=== PATIENT | female | born 1980 | race Asian ===

== ENCOUNTER 2017-05-06 06:37 | Day surgery (SDC) | payer OTHER ==
[~2017-05-06 06:37] MED LIST: Buffered Lidocaine 0.9% SYRIN* 5 ML/SYR SYRINGE INTRADERM ONE; Dexamethasone IV* 4 MG/ML 1 ML (4 MG) IV SLOW PU ONE; Dexamethasone IV* 4 MG/ML 1 ML (4 MG) ONE; Famotidine IV* 10 MG/ML 2 ML (20 mg) IV ONE; Famotidine IV* 10 MG/ML 2 ML (20 mg) ONE
[2017-05-06] MEDS ORDERED: Bupivacaine 0.25% SDV* 30 ML ONE (07:02)
[2017-05-06] MEDS ORDERED: Midazolam* 1 MG/ML 2 ML VIAL (2 MG) ONE (07:13)
[2017-05-06] MEDS ORDERED: fentaNYL* 50 MCG/ML 2 ML VIAL (100 MCG VIAL) ONE (07:13)
[2017-05-06] MEDS ORDERED: fentaNYL* 50 MCG/ML 2 ML VIAL (100 MCG VIAL) IV PRN (07:34)
[2017-05-06] MEDS ORDERED: Ketorolac INJ* 30 MG/ML 1 ML VIAL IV PRN (07:34)
[2017-05-06] MEDS ORDERED: HYDROcodone/ACETAMIN 5-325 MG* 1 TAB PO PRN (07:34)
[2017-05-06] MEDS ORDERED: PROCHLORPERAZINE INJ 5 MG/ML 2 ML VIAL IV PRN (07:34)
[2017-05-06] MEDS ORDERED: Ondansetron INJ* 2 MG/ML VIAL ONE (07:50)
[2017-05-06 08:27] VITALS: BP 117/85
--- NOTE | 2017-05-07 02:18 | OP ---
DATE OF OPERATION: 05/06/17 - [facility] DATE OF : 78 SURGEON: Brian Araujo MD JAVA WEB ENGINEER: None. ANESTHESIOLOGIST: Dr. David Lucero. ANESTHESIA: Local MAC. PRE-OP DIAGNOSIS: Right carpal tunnel syndrome. POST-OP DIAGNOSIS: Right carpal tunnel syndrome. PROCEDURE PERFORMED: Right open carpal tunnel release. INDICATIONS: Ae Say is 36. She has had progressive right carpal tunnel syndrome. We talked about risks and benefits; she wanted to proceed with right carpal tunnel release. ESTIMATED BLOOD LOSS: 2 mL. COMPLICATIONS: None. FINDINGS: As expected. DESCRIPTION OF PROCEDURE: The patient was seen in the preoperative holding area. The correct site, side, and procedure were identified. We came back to the operating room where she had some anesthesia and then I infiltrated the operative area with 0.25% plain Marcaine. Arm was then prepped and draped in the usual fashion. A formal time out was performed. I began by making a longitudinal incision about 2 to 3 cm in the standard location for an open carpal tunnel release. Dissection was carried down through the skin and subcutaneous tissue to the palmar fascia, which was then incised longitudinally. Soft tissue was retracted away and then the transverse carpal ligament was identified. The hook of the hamate was palpated. The transverse carpal ligament was released just off the radial aspect of the hook of the hamate. The release was carried up from distal to proximal. When I got proximally, I released the subcutaneous tissue and fascia, retracted it volarly and ulnarly with a Wayne rectractor. Under direct visualization, I then released remainder of the transverse carpal ligament and the distal antebrachial fascia with the tenotomy scissors under direct visualization. I then checked the release proximally and distally. Everything looked good. There was no compression on the nerve. We therefore irrigated the wound, the skin was closed with 4-0 nylon suture. Wound was dressed with Xeroform, 4x4, sterile Webril, and an Primitivo bandage. She was woken up and taken to recovery room. Arm was exsanguinated and tourniquet was inflated to 250 mmHg, prior to making skin incision was deflated, while placing dressings. The hand pinked up immediately. [id number]/[facility] #: [id number] [facility]
== END 2017-05-06 08:45 | disposition home or self-care (01) ==
LOC: OREAST 06:37
PROVIDERS: ATTEND Orthopaedic Surgery Hand Surgery
DX: G56.01 Carpal tunnel syndrome, right upper limb (principal)
CPT/HCPCS: 81025; J1100; J2250; J2405; J3010

== ENCOUNTER 2019-04-10 05:28 | Day surgery (SDC) | payer OTHER ==
[~2019-04-10 05:28] MED LIST changes: -Buffered Lidocaine 0.9% SYRIN* 5 ML/SYR SYRINGE INTRADERM ONE; +Buffered Lidocaine 1% SYRIN* 1 ML/SYRINGE INTRADERM ONE; -Dexamethasone IV* 4 MG/ML 1 ML (4 MG) IV SLOW PU ONE; -Dexamethasone IV* 4 MG/ML 1 ML (4 MG) ONE; -Famotidine IV* 10 MG/ML 2 ML (20 mg) IV ONE; -Famotidine IV* 10 MG/ML 2 ML (20 mg) ONE
[2019-04-10] MEDS ORDERED: Dexamethasone IV* 4 MG/ML 1 ML (4 MG) IV SLOW PU ONE (06:00)
[2019-04-10] MEDS ORDERED: Famotidine IV* 10 MG/ML 2 ML (20 mg) IV ONE (06:00)
[2019-04-10] MEDS ORDERED: Lactated Ringers 1000 ML Bag* 1,000 ML IV SCH (06:00)
[2019-04-10] MEDS ORDERED: Dexamethasone IV* 4 MG/ML 1 ML (4 MG) ONE (06:08)
[2019-04-10] MEDS ORDERED: Famotidine IV* 10 MG/ML 2 ML (20 mg) ONE (06:08)
[2019-04-10] MEDS ORDERED: Buffered Lidocaine 1% SYRIN* 1 ML/SYRINGE INTRADERM ONE (06:08)
[2019-04-10] MEDS ORDERED: Bupivacaine 0.25% SDV PF* 10 ML VIAL INJ ONE (07:05)
[2019-04-10] MEDS ORDERED: Lidocaine 2% PF * 5 ML VIAL ONE (07:10)
[2019-04-10] MEDS ORDERED: Propofol* 10 MG/ML 20 ML BTL ONE (07:10)
[2019-04-10] MEDS ORDERED: Midazolam* 1 MG/ML 2 ML VIAL (2 MG) ONE (07:10)
[2019-04-10] MEDS ORDERED: fentaNYL* 50 MCG/ML 2 ML VIAL (100 MCG VIAL) ONE (07:10)
[2019-04-10] MEDS ORDERED: Ketorolac INJ* 30 MG/ML 1 ML VIAL IV PRN (07:26)
[2019-04-10] MEDS ORDERED: DiMENhydriNATE IV* 50 MG/ML VIAL IV PUSH PRN (07:26)
[2019-04-10] MEDS ORDERED: oxyCODONE TAB* 5 MG TAB PO PRN (07:26)
[2019-04-10] MEDS ORDERED: HYDROcodone/ACETAMIN 5-325 MG* 1 TAB PO PRN (07:26)
[2019-04-10] MEDS ORDERED: Acetaminophen TAB* 325 MG PO PRN (07:26)
[2019-04-10] MEDS ORDERED: Naloxone* 0.4 MG/ML 1 ML VIAL IV PRN (07:26)
[2019-04-10] MEDS ORDERED: fentaNYL* 50 MCG/ML 2 ML VIAL (100 MCG VIAL) IV PRN (07:26)
[2019-04-10] MEDS ORDERED: Ondansetron INJ* 2 MG/ML VIAL ONE (08:13)
[2019-04-10] MEDS ORDERED: Ketorolac INJ* 30 MG/ML 1 ML VIAL ONE (09:07)
[2019-04-10 09:47] VITALS: BP 114/72
--- NOTE | 2019-04-10 14:05 | OP ---
DATE OF OPERATION: 04/10/19 - [facility] DATE OF : 78 SURGEON: Brian Araujo MD [employer] CONSULTANT: ROBERT Marie ANESTHESIOLOGIST: Dr. Lucero. ANESTHESIA: General. PRE-OP DIAGNOSIS: Left carpal tunnel syndrome. POST-OP DIAGNOSIS: Left carpal tunnel syndrome. OPERATIVE PROCEDURE: Left endoscopic carpal tunnel release. INDICATIONS: Ms. Oconnor has done very well with the right carpal tunnel release. I discussed doing the left side endoscopically and she wanted to do that. She understands the risks and benefits and she wants to proceed. ESTIMATED BLOOD LOSS: 2 mL. COMPLICATIONS: None. FINDINGS: See above and below. DESCRIPTION OF PROCEDURE: Ms. Oconnor was seen in the preoperative holding area. The correct site, side, and procedure were identified. We came back to the operating room. The arm was prepped and draped in the usual fashion and a time- out was performed. The arm was exsanguinated with the Esmarch and the tourniquet was inflated to 225 mmHg. I made a 1 cm transverse incision just ulnar to where the palmaris longus tendon would be. Dissection was carried down. The antebrachial fascia was split transversely, bluntly with the tenotomy scissors. A 2-prong skin hook was applied. I then used a synovial stripper followed by the dilators and then a Q-tip to drill out the carpal tunnel. I placed the MicroAire endoscopic carpal tunnel system. Once I had it in the correct location, I pulled the trigger to elevate the blade. The release was then carried out from distal to proximal. Before I released everything proximally, I confirmed the release distally. I then went ahead and released the proximal ligament. I then placed a Wayne retractor and confirmed the decompression. I released the distal antebrachial fascia proximally with the tenotomy scissors. At this point, the decompression was looking very good. We irrigated out the wound. The skin was closed with a 4-0 Prolene suture. Wound was dressed and she was taken to the recovery room in stable condition. [id number]/[facility] #: [id number] [facility]
== END 2019-04-10 10:18 | disposition home or self-care (01) ==
LOC: OR 05:28
PROVIDERS: ATTEND Orthopaedic Surgery Hand Surgery
DX: G56.02 Carpal tunnel syndrome, left upper limb (principal); D56.3 Thalassemia minor
CPT/HCPCS: 81025; J1100; J1885; J2250; J2405; J2704; J3010; J3490